=== PATIENT | male | born 2000 | race Caucasian/White ===

== ENCOUNTER 2022-10-29 03:43 | Emergency (ER) | payer SELFPAY ==
[~2022-10-29] VITALS: Ht 165.1 cm; Wt 65.8 kg
[2022-10-29] MEDS ORDERED: ONDANSETRON HCL/PF 4 MG/2 ML VIAL IM ONE (04:00)
--- NOTE | 2022-10-29 04:00 | NUR ---
TO ER BED 4. [id number] FOR ETOH. RR EVEN AND NON LABORED. 2 EPISODES OF EMESIS UPON ARRIVAL. SAFETY PRECAUTIONS IN PLACE. CONNECTED TO POX AND HEART MONITOR. AWAITING MD LUQUE
[2022-10-29] MEDS ORDERED: ONDANSETRON HCL/PF 4 MG/2 ML VIAL ONE (04:03)
--- NOTE | 2022-10-29 08:30 | NUR ---
PT RESTING IN BED. ON MONITOR. VSS. AROUSABLE. WILL CONTINUE TO MONITOR.
--- NOTE | 2022-10-29 12:19 | NUR ---
PT AWAKE, VERBALLY RESPONSIVE. PASHTO SPEAKING. PROVIDED W/ LUNCH TRAY
--- NOTE | 2022-10-29 13:19 | NUR ---
PT IS AWAKE. VERBALLY RESPONSIVE. AMBULATORY W. STEADY GAIT. DR SPIVEY IN TO SEE PATIENT. MEDICALLY CLEARED. D/C HOME INI STABLE CONDITION.
[2022-10-29 13:20] VITALS: BP 115/65
== END 2022-10-29 13:21 | disposition home or self-care (01) ==
LOC: ER 03:46 → EDBD 03:46 → ER 13:21
DX: F10.129 Alcohol abuse with intoxication, unspecified (principal); Z60.2 Problems related to living alone; Y90.9 Presence of alcohol in blood, level not specified
CPT/HCPCS: 99285; 96372; 82962; J2405